=== PATIENT | male | born 1975 | race African-American/Black ===

== ENCOUNTER → 2020-03-24 08:29 | Outpatient (CLI) | payer OTHER, MEDICAID, SELFPAY ==
--- NOTE | ~2020-03-24 | MR_ITS ---
EXAMINATION: MR knee RT wo con DATE: 03/24/2020 09:12 INDICATION: 2 weeks of generalized right knee pain and effusion. TECHNIQUE: Magnetic resonance imaging (MRI) of the right knee was performed without intravenous contr ast. Sequences included coronal PD-weighted FSE, coronal PD-weighted FS FSE, sagittal T2-weighted FS E, sagittal PD-weighted FS FSE and axial PD weighted fat saturated FSE. COMPARISON: None. FINDINGS: Medial compartment: Complex tear of the posterior body and posterior horn of the medial meniscus with primary longitudina l horizontal component but with associated vertical component which extends to contact both the super ior and inferior articular surfaces and with a more amorphous macerated appearance at the posterior r oot. Articular cartilage is normal. Lateral compartment: Lateral meniscus is normal. Articular cartilage is normal. Patellofemoral compartment: Small likely posttraumatic osteochondral defect along the inferomedial margin of the medial patellar facet with underlying marrow edema. Deep chondral flap tear extending superomedially from the central portion of the medial trochlea which is likely chronic given the underlying irregular cortical conto ur with minimal underlying marrow edema. Patellofemoral cartilage is otherwise normal. Ligaments and tendons: Anterior and posterior cruciate ligaments are normal. The fibular collateral ligament is normal. Ther e is mild thickening of the medial collateral ligament without significant surrounding edema is likel y mild scarring related to chronic sprain. The extensor mechanism is normal. The visualized medial an d lateral hamstring tendons as well as the iliotibial band are normal. Fluid: Moderate right knee joint effusion. 12 x 12 x 5 mm loose osteochondral body at the medial gutter of t he suprapatellar pouch. Disc could represent a fragment from the patellar osteochondral fracture brown jumana it appears larger and ovoid with corticated margins suggesting this is more chronic. Osseous/other: In addition to the osteochondral fracture at the inferior patella there is a juxtaposed prominent bon e contusion without a discrete fracture line along the lateral nonarticular surface of the lateral fe moral condyle. Pattern of injury consistent with a patellar dislocation/relocation injury. No patholo gic marrow replacing process. IMPRESSION: 1. Recent patellar dislocation/relocation injury pattern with bone contusion along the nonarticular l ateral side of the lateral femoral condyle and small osteochondral fracture along the inferomedial ma rgin of the medial patellar facet. 2. Complex medial meniscal tear. 3. Likely more chronic chondral flap tear with underlying cortical irregularity at the superomedial a spect of the medial trochlea. 4. Likely reactive moderate sized right knee joint effusion with loose osteochondral body at the supr apatellar pouch. Reviewed, dictated and finalized at location A. TAL MARKETER IMPRESSION: 1. Recent patellar dislocation/relocation injury pattern with bone contusion al wilian the nonarticular lateral side of the lateral femoral condyle and small oste ochondral fracture along the inferomedial margin of the medial patellar facet. 2. Complex medial meniscal tear. 3. Likely more chronic chondral flap tear with underlying cortical irregularity at the superomedial aspect of the medial trochlea. 4. Likely reactive moderate sized right knee joint effusion with loose osteocho ndral body at the suprapatellar pouch.
== END ==
PROVIDERS: Visit Provider Internal Medicine
DX: M25.461 Effusion, right knee (principal); S83.511A Sprain of anterior cruciate ligament of right knee, initial encounter; X58.XXXA Exposure to other specified factors, initial encounter; S83.231A Complex tear of medial meniscus, current injury, right knee, initial encounter
CPT/HCPCS: 73721

== ENCOUNTER 2020-06-16 12:27 | Outpatient (CLI) | payer OTHER, SELFPAY ==
--- NOTE | 2020-06-16 | ECG_ITS ---
Measurements Intervals [place] Rate: 93 P: 72 WI: 152 QRS: 70 QRSD: 98 T: 35 QT: 343 QTc: 427 Interpretive Statements SINUS RHYTHM WITH MARKED SINUS ARRHYTHMIA INCOMPLETE RIGHT BUNDLE BRANCH BLOCK VOLTAGE CRITERIA FOR LVH BASELINE WANDER- I, III, AVL, AVF BORDERLINE ECG Electronically Signed On 06-16-2020 15:51:42 ASSISTANT PROFESSOR OF RADIOLOGY by Lex Ramos D.O.
--- NOTE | ~2020-06-16 | XR_ITS ---
XR chest 2V DATE: 06/16/2020 12:53 INDICATION: Encounter for other preprocedural examination. TECHNIQUE: PA and lateral views COMPARISON: None FINDINGS: Bilateral hyperinflation. No pulmonary infiltrate or consolidation, pleural effusion or pul monary vascular congestion or pneumothorax is detected. Normal heart size. No hilar or mediastinal enlargement. IMPRESSION: Bilateral hyperinflation Reviewed, dictated and finalized at location A. BUILDER IMPRESSION: Bilateral hyperinflation
== END 2020-06-16 12:28 | disposition home or self-care (01) ==
PROVIDERS: PCP Nurse Practitioner Family; Visit Provider Nurse Practitioner Family
DX: Z01.818 Encounter for other preprocedural examination (principal); I45.10 Unspecified right bundle-branch block; R91.8 Other nonspecific abnormal finding of lung field
CPT/HCPCS: 71046; 93005